=== PATIENT | female | born 1990 | race Two or more races ===

== ENCOUNTER 2019-05-30 00:45 | Emergency (ER) | payer MEDICAID, OTHER ==
[~2019-05-30] VITALS: Ht 167.6 cm; Wt 59.4 kg
[2019-05-30 01:00] VITALS: BP 127/87
[2019-05-30 01:53] LABS: Alcohol, Urine < 3.0 mg/dL (0-5); Amphetamine Screen, Urine NEGATIVE (NEGATIVE); Barbiturate Scree,Urine NEGATIVE (NEGATIVE); Benzodiazephine Screen, Urine POSITIVE (NEGATIVE); Cannabinoid Screen, Urine POSITIVE (NEGATIVE); Cocaine Screen, Urine NEGATIVE (NEGATIVE)
[2019-05-30 02:00] LABS: Opiate Scree,Urine NEGATIVE (NEGATIVE); Phencyclidine Screen, Urine NEGATIVE (NEGATIVE)
== END 2019-05-30 02:30 | disposition home or self-care (01) ==
LOC: ER 00:45 → EDBD 00:45 → ER 02:30
DX: M54.5 Low back pain (principal); M25.562 Pain in left knee; F19.10 Other psychoactive substance abuse, uncomplicated; R51 Headache; M54.2 Cervicalgia; V43.52XA Car driver injured in collision with other type car in traffic accident, initial encounter; Y93.89 Activity, other specified; Y92.488 Other paved roadways as the place of occurrence of the external cause; Y99.8 Other external cause status
CPT/HCPCS: 70450; 72125; 72128; 72131; 80307; 81025